=== PATIENT | female | born 1955 | race Caucasian/White ===

== ENCOUNTER 2017-05-27 06:52 | Day surgery (SDC) | payer BC ==
[~2017-05-27] VITALS: Ht 152.4 cm; Wt 111.6 kg
[~2017-05-27 06:52] MED LIST: ACETAMINOPHEN 325 MG TAB PO PRN; ACETYLCHOLINE OPHTH SOLN 1% 2ML (MIOCHOL-E) As Ordered ONE; ACID100C PO; BALANCED SALT IRRIGATION SOLUTION 500ML BAG (FOR OR EYE MACHINE) As Ordered ONE; CEFUROXIME 1MG/0.1ML INTRACAMERAL INJ As Ordered ONE; FLON1SPR; FOSI40TA PO; GLUC1CAP10 PO; HEALON DUET (HEALON 10MG/ML 0.55ML & HEALON ENDOCOAT 30MG/ML 0.85ML) As Ordered ONE; HYDR200T3 PO; LEVOTAB10 PO; LIDOCAINE 1% SDV 5 ML VIAL As Ordered ONE; LISI40TAB PO; MELO7.5T7 PO; MONT10TA2 PO; MULT1TAB10 PO; OMEP40CA2 PO; OREN250I IV; POVIDONE-IODINE 5% OPHTH PREP SOL 30ML As Ordered ONE; PRED10TA2 PO; PRED5TA PO; SIMV40TA2 PO; TIZA4CAP3 PO; VITA2000 PO
[2017-05-27] MEDS ORDERED: TROPICAMIDE 1% OPHTH SOLN 2ML OD ONE (07:00)
[2017-05-27] MEDS ORDERED: LIDOCAINE 3.5 % 1ML OPHTH TOPICAL GEL OU ONE (07:00)
[2017-05-27] MEDS ORDERED: CYCLOPENTOLATE 2% OPHTH SOLN 2ML BTL OD ONE (07:00)
[2017-05-27] MEDS ORDERED: PHENYLEPHRINE 2.5% OPHTH SOL 2ML OD ONE (07:00)
[2017-05-27] MEDS ORDERED: OFLOXACIN 0.3 % (OCUFLOX) OPTH SOL 5ML OD ONE (07:00)
[2017-05-27] MEDS ORDERED: PROPARACAINE 0.5% OPHTH SOL 15ML OD PRN (07:01)
[2017-05-27] MEDS ORDERED: OFLOXACIN 0.3 % (OCUFLOX) OPTH SOL 5ML As Ordered ONE (07:03)
[2017-05-27] MEDS ORDERED: PHENYLEPHRINE 2.5% OPHTH SOL 2ML As Ordered ONE (07:03)
[2017-05-27] MEDS ORDERED: TROPICAMIDE 1% OPHTH SOLN 2ML As Ordered ONE (07:03)
[2017-05-27] MEDS ORDERED: CYCLOPENTOLATE 2% OPHTH SOLN 2ML BTL As Ordered ONE (07:03)
[2017-05-27] MEDS ORDERED: LR 1,000 ML IV ONE (07:15)
[2017-05-27] MEDS ORDERED: LIDOCAINE 1% MDV 20ML VIAL SC PRN (07:15)
[2017-05-27] MEDS ORDERED: MIDAZOLAM INJ 2 MG/2 ML VIAL (J2250) As Ordered ONE (07:40)
[2017-05-27] MEDS ORDERED: fentaNYL 100 MCG/2 ML INJECTION (J3010) As Ordered ONE (07:41)
[2017-05-27] MEDS ORDERED: ACETYLCHOLINE OPHTH SOLN 1% 2ML (MIOCHOL-E) As Ordered ONE (07:54)
[2017-05-27] MEDS ORDERED: HEALON DUET (HEALON 10MG/ML 0.55ML & HEALON ENDOCOAT 30MG/ML 0.85ML) As Ordered ONE (07:54)
[2017-05-27] MEDS ORDERED: LIDOCAINE 1% SDV 5 ML VIAL As Ordered ONE (07:54)
[2017-05-27] MEDS ORDERED: CEFUROXIME 1MG/0.1ML INTRACAMERAL INJ As Ordered ONE (07:54)
[2017-05-27] MEDS ORDERED: TETRACAINE 0.5% OPHTH SOLN 4ML As Ordered ONE (08:19)
[2017-05-27 09:00] VITALS: BP 167/90
[2017-05-27] MEDS ORDERED: TRIMETHOBENZAMIDE 300 MG CAP PO PRN (09:15)
[2017-05-27] MEDS ORDERED: KETOROLAC 0.5% OPHTH SOLN OD ONE (09:15)
[2017-05-27] MEDS ORDERED: AcetaZOLAMIDE 500 MG ER CAP PO ONE (09:15)
--- NOTE | 2017-05-27 10:44 | RO ---
DATE OF PROCEDURE: 05/27/2017 PREPROCEDURE DIAGNOSIS: Age related nuclear cataract right eye. POSTPROCEDURE DIAGNOSIS: Age related nuclear cataract right eye. PROCEDURE: Phacoemulsification and posterior chamber intraocular lens implantation right eye. The lens used was [id number], 19.5 diopter. SURGEON: Mariana Medrano MD LOBBY CONCIERGE: ANESTHESIA: Topical with sedation. DESCRIPTION OF PROCEDURE: The patient was prepped and draped in the usual fashion. A lid speculum was placed between the lids. The eye was fixated. A stab incision was made to the anterior chamber, and 1% non-preserved lidocaine was instilled. Then, viscoelastic was instilled. The eye was re-fixated. A 2.75 mm sapphire keratome was used to make a clear corneal temporal limbal incision. Capsulorrhexis was begun with a 30-gauge bent needle and then carried out in a circular fashion with capsulorrhexis forceps. The lens was hydrodissected, and then the phacoemulsification unit was used to make a groove in the nucleus in two meridians. The nucleus was then cracked into four quadrants. Each quadrant was removed with the phacoemulsification unit. Any remaining cortex was removed with the irrigation and aspiration (I and A) unit. Capsular bag was refilled with viscoelastic. A posterior chamber intraocular lens was placed in the capsular bag without difficulty. Any remaining viscoelastic was removed with the I and A unit. The wound was hydrated, and Miochol and cefuroxime were instilled into the anterior chamber. The patient tolerated the procedure well and went to the recovery room in stable condition.
== END 2017-05-27 09:33 | disposition home or self-care (01) ==
LOC: M SDC 06:52
PROVIDERS: ATTEND Ophthalmology
DX: H25.11 Age-related nuclear cataract, right eye (principal); I10 Essential (primary) hypertension; M06.9 Rheumatoid arthritis, unspecified; Z79.899 Other long term (current) drug therapy; K21.9 Gastro-esophageal reflux disease without esophagitis; Z88.8 Allergy status to other drugs, medicaments and biological substances
CPT/HCPCS: 66984; J2250; J3010

== ENCOUNTER 2024-06-16 07:28 | Day surgery (SDC) | payer MEDICARE ==
[~2024-06-16] VITALS: Ht 154.9 cm; Wt 99.5 kg
[~2024-06-16 07:28] MED LIST changes: -ACETAMINOPHEN 325 MG TAB PO PRN; -ACETYLCHOLINE OPHTH SOLN 1% 2ML (MIOCHOL-E) As Ordered ONE; +AMLO1TAB24 PO; -BALANCED SALT IRRIGATION SOLUTION 500ML BAG (FOR OR EYE MACHINE) As Ordered ONE; +CALC-190 PO; -CEFUROXIME 1MG/0.1ML INTRACAMERAL INJ As Ordered ONE; +D32000CA PO; +FLUTISP; -FOSI40TA PO; +FOSI40TA59 PO; -HEALON DUET (HEALON 10MG/ML 0.55ML & HEALON ENDOCOAT 30MG/ML 0.85ML) As Ordered ONE; +HM C500T4 PO; -HYDR200T3 PO; +HYDR200T46 PO; +KP F1200 PO; -LIDOCAINE 1% SDV 5 ML VIAL As Ordered ONE; +LISI40TA4 PO; -LISI40TAB PO; -MONT10TA2 PO; +MONT10TA97 PO; +OMEP-173 PO; -OMEP40CA2 PO; +OMEP40CA4 PO; -OREN250I IV; +OREN250I2 IV; +OXYB-54 PO; +PHENYLEPHRINE 10% OPHTH SOL 5ML OS PRN; -POVIDONE-IODINE 5% OPHTH PREP SOL 30ML As Ordered ONE; +ROSU20TA86 PO; -SIMV40TA2 PO; +SIMV40TA20 PO; +SULF500T41 PO; +THERTAB52 PO; +TIZA4CAP PO; -TIZA4CAP3 PO
[2024-06-16] MEDS: OFLOXACIN 0.3 % (OCUFLOX) OPTH SOL 5ML OS ONE (07:53)
[2024-06-16] MEDS: ATROPINE SULFATE 1% OPHTH SOLN 2ML BTL OS SCH (07:54)
[2024-06-16] MEDS: TROPICAMIDE 1% OPHTH SOLN 15ML OS SCH (07:54)
[2024-06-16] MEDS: PHENYLEPHRINE 2.5% OPHTH SOL 2ML OS SCH (07:54)
[2024-06-16] MEDS: LIDOCAINE 3.5 % 1ML OPHTH TOPICAL GEL OU ONE (07:54)
[2024-06-16] MEDS ORDERED: fentaNYL 100 MCG/2 ML INJECTION As Ordered ONE (07:56)
[2024-06-16] MEDS ORDERED: MIDAZOLAM INJ 2MG/2ML VIAL As Ordered ONE (07:56)
[2024-06-16] MEDS: LIDOCAINE 1% SDV 5ML VIAL As Ordered ONE (08:40)
[2024-06-16] MEDS: BSS IRRIG/VANCO(10MG)/TOBRA(5MG)/EPINEPH(1:1000-0.5CC)500ML BAG-ORONLY As Ordered ONE (08:40)
[2024-06-16] MEDS: CEFUROXIME 1MG/0.1ML INTRACAMERAL INJ As Ordered ONE (08:40)
[2024-06-16 08:51] VITALS: BP 121/74; TEMP 97.9; O2SAT 97
== END 2024-06-16 09:06 | disposition home or self-care (01) ==
LOC: M SDC 07:28
PROVIDERS: ATTEND Ophthalmology
DX: H25.12 Age-related nuclear cataract, left eye (principal); I10 Essential (primary) hypertension; E78.5 Hyperlipidemia, unspecified; J30.2 Other seasonal allergic rhinitis; Z88.5 Allergy status to narcotic agent; Z79.899 Other long term (current) drug therapy
CPT/HCPCS: 66984; J0697; J2250; J3010; V2632

== ENCOUNTER → 2024-07-11 | Outpatient (REF) | payer MEDICARE ==
[~2024-07-11] MED LIST changes: -PHENYLEPHRINE 10% OPHTH SOL 5ML OS PRN
== END ==
LOC: M LAB REF 07:55
PROVIDERS: ATTEND Ophthalmology
DX: D23.112 Other benign neoplasm of skin of right lower eyelid, including canthus (principal); L82.0 Inflamed seborrheic keratosis